=== PATIENT | female | born 1990 | race Hispanic/Latino ===

== ENCOUNTER 2019-10-29 22:30 | Inpatient (IN) | payer BC, MEDICAID ==
[~2019-10-29] VITALS: Ht 157.5 cm; Wt 107.0 kg
[2019-10-30] MEDS ORDERED: AMPICILLIN 2GM+NS 100ML 100 ML IV SCH
[2019-10-30] MEDS ORDERED: LACTATED RINGERS 1000ML 1,000 ML IV SCH
[2019-10-30] MEDS: AMPICILLIN 1GM+NS 50ML 50 ML IV SCH ×2 (04:33→09:14)
[2019-10-30] MEDS ORDERED: LACTATED RINGERS 1000ML 1,000 ML IV PRN (08:50)
[2019-10-30] MEDS ORDERED: OXYTOCIN 10 USP UNITS/ML 20 UNIT in LACTATED RINGERS 1000ML 1,000 ML IV SCH (09:00)
[2019-10-30] MEDS ORDERED: OXYTOCIN-LR 20 UNITS/1000 ML 1,000 ML IV SCH ×2 (09:00→13:30)
[2019-10-30] MEDS ORDERED: OXYTOCIN-LR 20 UNITS/1000 ML 1,000 ML IV ONE (09:10)
[2019-10-30] MEDS ORDERED: PROMETHAZINE HCL 25 MG/ML 1ML AMPULE IM SCH (12:30)
[2019-10-30] MEDS ORDERED: MEPERIDINE-PF 50 MG/ML SYG IVP PRN (12:30)
[2019-10-30] MEDS ORDERED: METHYLERGONOVINE MALEATE 0.2 MG/1 ML ML ONE (13:18)
[2019-10-30] MEDS ORDERED: LANOLIN 30GM OINTMENT TP PRN (13:30)
[2019-10-30] MEDS ORDERED: DIPH,PERTUSS(ACELL),TET VAC/PF 0.5 ML VIAL IM PRN (13:30)
[2019-10-30] MEDS ORDERED: WITCH HAZEL 1 PAD TP PRN (13:30)
[2019-10-30] MEDS ORDERED: BENZOCAINE/LANOLIN/ALOE VERA 60 ML AEROSOL TP PRN (13:30)
[2019-10-30] MEDS ORDERED: MEASLES/MUMPS/RUBELLA VACCINE, LIVE 0.5 ML/VIAL SQ PRN (13:30)
[2019-10-30] MEDS ORDERED: ACETAMINOPHEN 325 MG TAB PO PRN (13:30)
[2019-10-30] MEDS ORDERED: ACETAMINOPHEN-CODEINE 300/30MG TAB PO PRN (13:30)
[2019-10-30] MEDS: IBUPROFEN 600 MG TABLET PO PRN (15:37)
[2019-10-30 16:42] VITALS: BP 141/85; PULSE 106; RESP 19; TEMP 98.3
--- NOTE | 2019-10-30 16:45 | NUR ---
PATIENT ADMITTED TO FLOOR AND WAS OREINTED TO UNIT AFTER ASSESSMENT. PATIENT HURRIED TO NURSERY AFTER ASSESSMENT TO GO SEE BABY. ENCOURAGED PT TO GET BREASTPUMP FROM NURSERY TO START PUMPING BREAST.
--- NOTE | 2019-10-30 18:30 | NUR ---
PT PUMPED BREAST AND SPOUSE TOOK BREASTMILK TO NURSERY. INSTRUCTED PT TO LABEL BREASTMILK FOR BABY.
--- NOTE | 2019-10-30 19:10 | NUR ---
REPORT GIVEN TO CHUY PRAJAPATI AND PATIENT CARE TRANSFERED AT THIS TIME.
[2019-10-30 19:35] VITALS: BP 119/69; PULSE 98; RESP 18; TEMP 98.1
[2019-10-30] MEDS: DOCUSATE SODIUM 100 MG CAP PO SCH (20:36)
[2019-10-30 23:42] VITALS: BP 87/51; PULSE 85; RESP 18; TEMP 98.3
[2019-10-31 02:36] VITALS: BP 97/54; PULSE 83; RESP 18; TEMP 98.1
[2019-10-31] MEDS: AMPICILLIN 1GM+NS 50ML 50 ML IV SCH (04:00)
[2019-10-31] MEDS: IBUPROFEN 600 MG TABLET PO PRN (06:27)
[2019-10-31 06:59] VITALS: BP 114/53; PULSE 97; RESP 18; TEMP 98.5
--- NOTE | 2019-10-31 07:55 | NUR ---
PHYSICAL ASSESSMENT DONE AND DENIES PAIN AND FUNDUS IS FIRM AT -1 AND LOCHIA IS SMALL. A.M. LABS ARE STABLE AND PATIENT DENIES ANY PROBLEMS WITH ACTIVITY. INFORMED PATIENT OF WRITTEN ORDER AFTER 24 HOURS.
[2019-10-31] MEDS: DOCUSATE SODIUM 100 MG CAP PO SCH (08:46)
[2019-10-31 11:23] VITALS: BP 118/60; PULSE 92; RESP 18; TEMP 97.9
--- NOTE | 2019-10-31 12:45 | NUR ---
DISCHARGE INSTRUCTIONS WERE REVIEWED WITH PATIENT AND VERBALIZED UNDERSTANDING. INFORMED PATIENT TO TAKE MOTRIN OVER THE COUNTER NEEDED FOR PAIN OR PERINEAL DISCOMFORT. PATIENT STATES WAS ABLE TO HAVE A BOWEL MOVEMENT AND WAS HAPPY SINCE SHE WAS NERVOUS ABOUT HAVING A BOWEL MOVEMENT AFTER HAVING AN EPISIOTOMY. INSTRUCTED PATIENT TO GET COLACE OVER THE COUNTER AND CAN TAKE IT TWICE A DAY AND DRINK LOTS OF WATER SINCE SHE IS AND VERBALIZED UNDERSTANDING ALL INSTRUCTIONS GIVEN.
--- NOTE | 2019-10-31 13:00 | NUR ---
PATIENT WENT TO VISIT WITH BABY IN NURSERY BEFORE GOING HOME. PATIENT IS STABLE AND HAD PUMPED SOME BREASTMILK BEFORE BEING DISCHARGED.
--- NOTE | 2019-10-31 13:40 | NUR ---
PATIENT WAS TAKEN VIA W/C TO FAMILY VEHICLE AND WAS DISCHARGED TO SPOUSE IN STABLE CONDITION. PATIENT DENIES PAIN AND AMBULATED WELL WITHOUT ANY PROBLEMS. BABY NOT DISCHARGED DUE TO BEING A LEVEL II BABY.
== END 2019-10-31 13:40 | disposition home or self-care (01) | DRG 807 ==
LOC: EDH 22:30 → OBSVTOIN 22:31 → LDH 22:31 → WSH 10-30 16:45
PROVIDERS: ADMIT Specialist; ATTEND Specialist
PROC: 10E0XZZ Delivery of Products of Conception, External Approach (ICD-10-PCS; principal; 2019-10-30)
PROC: 0KQM0ZZ Repair Perineum Muscle, Open Approach (ICD-10-PCS; 2019-10-30)
PROC: 10907ZC Drainage of Amniotic Fluid, Therapeutic from Products of Conception, Via Natural or Artificial Opening (ICD-10-PCS; 2019-10-30)
PROC: 3E0134Z Introduction of Serum, Toxoid and Vaccine into Subcutaneous Tissue, Percutaneous Approach (ICD-10-PCS; 2019-10-30)
PROC: 3E0234Z Introduction of Serum, Toxoid and Vaccine into Muscle, Percutaneous Approach (ICD-10-PCS; 2019-10-30)
DX: O70.1 Second degree perineal laceration during delivery (principal); Z37.0 Single live birth; Z23 Encounter for immunization; Z3A.35 35 weeks gestation of pregnancy